=== PATIENT | male | born 1975 | race Caucasian/White ===

== ENCOUNTER 2020-06-21 10:47 | Emergency (ER) | payer SELFPAY ==
[~2020-06-21] VITALS: Ht 180.3 cm; Wt 86.6 kg
[2020-06-21 11:00] VITALS: Ht 180.3 cm; Wt 86.6 kg
[2020-06-21 12:05] LABS: BASOPHIL % 0.2 % (0-2); PLATELET COUNT 305 x10^3mcL (130-400)
[2020-06-21 12:18] LABS: CARBON DIOXIDE 26.7 mmol/L (21-32); CREATININE SERUM 1.6 mg/dL (0.7-1.3); POTASSIUM SERUM 4.4 mmol/L (3.5-5.1)
[2020-06-21 12:23] LABS: ALBUMIN 4.6 g/dL (3.4-5.0); BILIRUBIN TOTAL 0.7 mg/dL (0.20-1.00); TOTAL PROTEIN, SERUM 8.1 g/dL (6.4-8.2)
[2020-06-21 14:53] VITALS: BP 109/76
== END 2020-06-21 14:53 | disposition home or self-care (01) ==
LOC: ED 10:47
DX: N20.0 Calculus of kidney (principal); K57.30 Diverticulosis of large intestine without perforation or abscess without bleeding
CPT/HCPCS: J1885